=== PATIENT | male | born 1955 | race Caucasian/White ===

== ENCOUNTER → 2021-11-15 | Outpatient (CLI) | payer MEDICARE ==
--- NOTE | 2021-11-15 12:43 | US ---
EXAMINATION TYPE: US duplex aorta DATE OF EXAM: 11/15/2021 COMPARISON: NONE CLINICAL HISTORY: 66-year-old male Z13.6 AAA Screening. Pt has no complaints at this time, AAA screen ing TECHNIQUE: Multiple sonographic images of the abdominal aorta are obtained. FINDINGS: EXAM MEASUREMENTS: Abdominal Aorta: Proximal: 2.6 x 2.8 cm Mid: 2.1 x 2.0 cm Distal: 2.1 x 2.0 cm Bifurcation: MURRAY: 1.5 x 1.5 cm JENNIFFER: 1.5 x 1.5 cm Mailroom Personnel notes:Aorta appeared ectatic with the proximal portion at upper limits of normal for me asurements, however aorta did not measure > 3cm at any location IMPRESSION: 1. 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 The right and left common iliac arteries are also borderline ectatic at 1.5 cm on either side. 2. No sonographic evidence for AAA.
== END | disposition home or self-care (01) ==
LOC: RADUSWWP 07:03
PROVIDERS: ATTEND Family Medicine
DX: Z13.6 Encounter for screening for cardiovascular disorders (principal); I77.811 Abdominal aortic ectasia
CPT/HCPCS: 93979

== ENCOUNTER 2021-12-16 07:29 | Day surgery (SDC) | payer MEDICARE ==
[2021-12-14 11:48] VITALS: BMI 31.6
[~2021-12-16 07:29] MED LIST: LACTATED RINGERS 1,000 ML IV SCH; LIDOCAINE 1% (10MG/ML) FOR IV START INTRADERMA PRN
[2021-12-16 07:47] VITALS: RESP 16; TEMP 97.4
[2021-12-16] MEDS ORDERED: PROPOFOL 10 MG/ML 20 ML VIAL IV ONE (08:20)
--- NOTE | 2021-12-16 08:38 | P.PCN ---
Date of Procedure: 12/16/21 Procedure(s) Performed: BRIEF HISTORY: Patient is a 66-year-old pleasant white male scheduled for an elective colonoscopy as a part of screening for colon rectal neoplasia. PROCEDURE PERFORMED: Colonoscopy with snare polypectomy. PREOPERATIVE DIAGNOSIS: Screening for colon cancer. IV sedation per Anesthesia. PROCEDURE: After informed consent was obtained, the patient, was brought into the endoscopy unit. IV sedation was administered by Anesthesia under continuous monitoring. Digital rectal examination was normal. Initially the Olympus CF-160 flexible video colonoscope was then inserted in the rectum, gradually advanced into the cecum without any difficulty. Careful examination was performed as the scope was gradually being withdrawn. Ileocecal valve and the appendiceal orifice were visualized and appeared normal. Prep was fair.. Mucosa of the cecum, ascending colon, appeared normal. The hepatic flexure there was a 5-6 mm sessile polyp removed by snare polypectomy. Rest of the transverse colon, descending colon, sigmoid colon, and rectum appeared normal. Diffuse scattered diverticulosis noted throughout the entire colon. Retroflexion was performed in the rectum and small internal hemorrhoids were seen. The patient tolerated the procedure well. IMPRESSION: 5-6 mm hepatic flexure polyp status post polypectomy Diffuse scattered diverticulosis throughout the entire colon Small internal hemorrhoids RECOMMENDATIONS: Findings of this examination were discussed with the patient as well as his family. He was advised to follow with the biopsy results. If the biopsy reveals adenoma he can have a repeat colonoscopy in 5 years..
[2021-12-16 09:07] VITALS: BP 145/79; PULSE 81
== END 2021-12-16 09:16 | disposition home or self-care (01) ==
LOC: ORWHC2ENDO 07:29
PROVIDERS: ATTEND Internal Medicine Gastroenterology
DX: Z12.11 Encounter for screening for malignant neoplasm of colon (principal); K63.5 Polyp of colon; K57.30 Diverticulosis of large intestine without perforation or abscess without bleeding; K64.8 Other hemorrhoids; I10 Essential (primary) hypertension; Z79.899 Other long term (current) drug therapy; Z87.891 Personal history of nicotine dependence
CPT/HCPCS: 88305; 45385; J2704